=== PATIENT | male | born 1965 | race Hispanic/Latino ===

== ENCOUNTER 2017-06-27 22:20 | Emergency (ER) | payer OTHER ==
[2017-06-27 22:21] VITALS: BMI 28.0
--- NOTE | 2017-06-27 22:27 | ED PDOC ---
Arrival/HPI - General Time Seen by Provider: 06/27/17 22:26 Historian: Patient - History of Present Illness Narrative History of Present Illness (Text): 06/27/17 22:27 51 y/o male, pmh including diverticulitis, nkda, c/o lt. ankle pain s/p inversion injury in the dark x 2 hours. Pt. was walking in the dark with the mud, inversion injury, twisted the lt. ankle, no foot injury or pain, no calf pain, no numbness or tingling, no palpitation, no rash, no night sweat, no other medical or psychological complaints. Past Medical History - Provider Review Nursing Documentation Reviewed: Yes - Infectious Disease Hx of Infectious Diseases: None - Tetanus Immunization Tetanus Immunization: Unknown - Past Medical History Past Medical History: No Previous - Psychiatric Hx Substance Use: No - Surgical History Other/Comment: vasectomy - Anesthesia Hx Anesthesia: Yes Hx Anesthesia Reactions: No Hx Malignant Hyperthermia: No - Suicidal Assessment Feels Threatened In Home Enviroment: No Family/Social History - Physician Review Nursing Documentation Reviewed: Yes Family/Social History: Unknown Family HX Smoking Status: Never Smoked Hx Alcohol Use: Yes Hx Substance Use: No Hx Substance Use Treatment: No Allergies/Home Meds Allergies/Adverse Reactions: Allergies No Known Allergies Allergy (Verified 10/10/14 12:43) Review of Systems - Review of Systems Constitutional: absent: Fatigue, Fevers Eyes: absent: Vision Changes ENT: absent: Hearing Changes Respiratory: absent: SOB, Cough Cardiovascular: absent: Chest Pain Gastrointestinal: absent: Abdominal Pain, Nausea, Vomiting Musculoskeletal: Arthralgias, Joint Swelling. absent: Back Pain, Neck Pain, Myalgias Skin: absent: Rash, Pruritis Physical Exam Vital Signs Reviewed: Yes Vital Signs Temp Pulse Resp BP Pulse Ox 06/28/17 01:35 70 18 121/82 98 06/28/17 00:21 68 18 120/85 98 06/27/17 22:21 98.3 F 67 18 119/87 98 Temperature: Afebrile Blood Pressure: Normal Pulse: Regular Respiratory Rate: Normal Appearance: Positive for: Well-Appearing, Non-Toxic Pain Distress: Severe Mental Status: Positive for: Alert and Oriented X 3 - Systems Exam Head: Present: Atraumatic, Normocephalic Pupils: Present: PERRL Extroacular Muscles: Present: EOMI Conjunctiva: Present: Normal Mouth: Present: Moist Mucous Membranes Neck: Present: Normal Range of Motion Respiratory/Chest: Present: Clear to Auscultation, Good Air Exchange. No: Respiratory Distress, Accessory Muscle Use Cardiovascular: Present: Regular Rate and Rhythm, Normal S1, S2. No: Murmurs Abdomen: Present: Normal Bowel Sounds. No: Tenderness, Distention, Peritoneal Signs Back: Present: Normal Inspection Upper Extremity: Present: Normal Inspection. No: Cyanosis, Edema Lower Extremity: Present: Normal Inspection, Other (Lt. ankle/foot: +ttp and swelling to the lateral malleolus region, negative bill and munguia signs, FROM without limitation, sensation intact, motor 5/5, +DPPT pulses, capillary refill< 2 seconds, neurovascular intact. ). No: Edema Neurological: Present: GCS=15, CN II-XII Intact, Speech Normal Skin: Present: Warm, Dry, Normal Color. No: Rashes Psychiatric: Present: Alert, Oriented x 3, Normal Insight, Normal Concentration Medical Decision Making ED Course and Treatment: 06/27/17 23:29 -toradol/percocet -xray 06/28/17 01:02 -posterior splint applied by me with neurovascular intact. -xray show soft tissue swelling to the lateral ankle but no obvious fracture or dislocation -Discharge home with naproxen, splint, crutches, copy of the xray, ice compression, elevation, follow up with your own pmd and orthopedic within 2 days , return to the ER for any new or worsening signs or symptoms. - RAD Interpretation Radiology Orders: 06/27/17 23:57 ANKLE LEFT 3 VIEWS ROUTINE [RAD] Stat normal left ankle Superintendent Renting Managing: Radiologist - Medication Orders Current Medication Orders: Discontinued Medications Ketorolac Tromethamine (Toradol) 60 mg IM STAT STA Stop: 06/27/17 23:29 Last Admin: 06/27/17 23:44 Dose: 60 mg Re-Assess: LUIS Pain Assessment Document 06/28/17 00:44 JOL (Rec: 06/28/17 02:29 JOL [id number]) Pain Reassessment Is this a pain reassessment? Yes Sleep Is patient sleeping during reassessment? No Presence of Pain Presence of Pain No Oxycodone/Acetaminophen (Percocet 5/325 Mg Tab) 1 tab PO STAT STA Stop: 06/27/17 23:29 Last Admin: 06/27/17 23:30 Dose: 1 tab Re-Assess: LUIS Pain Assessment Document 06/28/17 00:30 MICHAEL (Rec: 06/28/17 02:28 JORachel [id number]) Pain Reassessment Is this a pain reassessment? Yes Sleep Is patient sleeping during reassessment? No Presence of Pain Presence of Pain No - PA / PAINTER TOUCH UP / Resident Statement MD/DO has reviewed & agrees with the documentation as recorded. Disposition/Present on Arrival - Present on Arrival Any Indicators Present on Arrival: No History of DVT/PE: No History of Uncontrolled Diabetes: No Urinary Catheter: No History of Decub. Ulcer: No History Surgical Site Infection Following: None - Disposition Have Diagnosis and Disposition been Completed?: Yes Diagnosis: Ankle injury, Ankle pain Disposition: HOME/ ROUTINE Disposition Time: 23:30 Patient Plan: Discharge Condition: IMPROVED Additional Instructions: -Discharge home with naproxen, splint, crutches, copy of the xray, ice compression, elevation, follow up with your own pmd and orthopedic within 2 days , return to the ER for any new or worsening signs or symptoms. Prescriptions: Naproxen 500 mg PO BID PRN #20 tab PRN Reason: Other Referrals: Brannon Boyle MD [Primary Care Provider] - Follow up with primary Joaquín Rojo MD [Staff Provider] - Follow up with primary Forms: WORK NOTE
[2017-06-27] MEDS ORDERED: Oxycodone/Acetaminophen 5/325 mg Tab PO STA (23:28)
[2017-06-27 23:29] VITALS: RESP 18; TEMP 98.3; O2SAT 98
[2017-06-28 02:28] VITALS: BP 121/82; PULSE 70
--- NOTE | 2017-06-28 17:11 | RAD ---
PROCEDURE: Left Ankle Radiographs. HISTORY: lt. ankle inversion injury and pain COMPARISON: None FINDINGS: BONES: Normal. No fracture. JOINTS: Normal. No osteoarthritis. Ankle mortise maintained. Talar dome intact SOFT TISSUES: Normal. OTHER FINDINGS: None. IMPRESSION: Normal left ankle radiographs.
== END 2017-06-28 01:42 | disposition home or self-care (01) ==
LOC: ED 22:20
DX: S99.912A Unspecified injury of left ankle, initial encounter (principal); X50.0XXA Overexertion from strenuous movement or load, initial encounter; Y93.89 Activity, other specified; Y92.89 Other specified places as the place of occurrence of the external cause
CPT/HCPCS: 73610; 96372; 99284; J1885